=== PATIENT | male | born 1995 | race Caucasian/White ===

== ENCOUNTER 2020-11-14 08:49 | Emergency (ER) | payer SELFPAY ==
[2020-11-14 09:00] VITALS: BP 129/78; PULSE 99; RESP 16; TEMP 36.6; O2SAT 100
--- NOTE | 2020-11-14 09:09 | ED.GENADULT ---
HPI - General Adult General Chief complaint: Wound/Laceration Stated complaint: Right Hand Injury Time Seen by Provider: 11/14/20 08:59 History of Present Illness HPI narrative: Patient is a 24-year-old male who comes into the ED today with concern for laceration and wound to his right hand. Patient's history changes as I am speaking with him. Initially he tells me that he suffered a laceration to right palm about 3 hours ago while at work, later on after I point out the fact that this wound appears much older than just 3 hours he tells me that the laceration to his right palm actually happened yesterday while working on a roof and then when he was working this morning he had some stress pill on his right hand and it made the wound worse. He also has an ulcerated wound at the proximal aspect of his right palm which she says is from a wasp sting 7 days ago. He is able to move his hand with full range of motion without pain. He is not having any fevers or systemic symptoms. History of cocaine use and marijuana use. No history of injecting drugs. Otherwise healthy. Does not know when last tetanus was. Related Data Allergies Allergy/AdvReac Type Severity Reaction Status Date / Time No Known Allergies Allergy Verified 11/14/20 09:05 Review of Systems Constitutional: Constitutional: Reports as per HPI, Denies fever(s), Denies night sweats and Denies weakness Cardiovascular: Cardiovascular: Denies chest pain, Denies edema, Denies leg edema, Denies dyspnea and Denies orthopnea Respiratory: Respiratory: Denies cough and Denies dyspnea Gastrointestinal: Gastrointestinal: Denies abdominal pain, Denies constipation, Denies diarrhea, Denies nausea and Denies vomiting Musculoskeletal: Musculoskeletal: Denies abnormal gait, Denies back pain, Denies numbness and Denies tingling Integumentary/Breasts: Comments: See HPI Neurologic: Denies Abnormal speech present, Denies abnormal gait, Denies numbness, Denies tingling and Denies weakness Psychiatric: Psychiatric: Denies homicidal ideation and Denies suicidal ideation Exam Const: General: cooperative, healthy appearing, comfortable, no acute distress, well developed, alert, awake and Physically active Orientation/consciousness: patient oriented x3 HENMT: Head: normal to inspection, normocephalic and atraumatic Ears: external ears normal General nose exam: Normal external nose present Eyes: Pupils: Equal, round and reactive pupils present EOM: EOMs intact bilaterally Neck: Neck: normal visual inspection Chest: Chest palpation & inspection: normal inspection of the chest and no tenderness Resp: Effort & Inspection: normal respiratory effort and able to speak in complete sentences Auscultation: clear to auscultation bilaterally Cardio: Rate: regular rate Rhythm: regular rhythm GI: Inspection: normal to inspection GI Palp: No abdominal tenderness : General: Yes no CVA tenderness Back/Spine/Pelvis: Back: no CVA tenderness Skin: General skin exam: normal color and no rashes or lesions noted Lesions: no lesions Other: There is a very superficial vertical laceration on the ulnar aspect right palm approximately 6 cm in length, there is some blanchable erythema surrounding this and extending into the middle of the palm. At the proximal aspect mid right palm there is a 1 cm in diameter superficial ulcerated lesion with yellow eschar wound bed with minimal surrounding erythema. There is no crepitus. Pain is not out of proportion to exam. Incidentally on the dorsal aspect left thumb he has 1/2 cm diameter ulcerated lesion that has some purulent drainage which she says is from a wasp sting a couple weeks ago. Incidentally on the left middle finger he has a very small paronychia and with some pressure there is some serous drainage. Neuro: General: patient oriented x3, no focal motor deficits and CN's II-XI intact bilaterally Cranial nerves: Yes Equal, round and reactive pupils present
[2020-11-14] MEDS: TETANUS,DIPHTHERIA,AC PERTUSSIS ADULT (0.5 ML) BOOSTRIX IM (10:26)
[2020-11-14 10:41] VITALS: PULSE 88; RESP 16
== END 2020-11-14 10:42 | disposition home or self-care (01) ==
PROVIDERS: Emergency Provider Emergency Medicine
DX: L03.113 Cellulitis of right upper limb (principal); S61.411A Laceration without foreign body of right hand, initial encounter; Z23 Encounter for immunization; X58.XXXA Exposure to other specified factors, initial encounter
CPT/HCPCS: 90471; 90715; 99283

== ENCOUNTER 2021-03-07 17:50 | Emergency (ER) | payer SELFPAY ==
[2021-03-07 18:01] VITALS: BP 135/59; PULSE 80; RESP 17; TEMP 36.4; O2SAT 100
--- NOTE | 2021-03-07 18:48 | ED.DENTAL ---
HPI - Dental/Oral General Chief complaint: Dental/Oral <Sadiq Kowalski PA-C - Last Filed: 03/07/21 18:52> Stated complaint: L SIDE DENTAL PAIN <BAKARI Hawthorne Last Filed: 03/07/21 18:52> Time Seen by Provider: 03/07/21 18:07 <Sadiq Kowalski PA-C - Last Filed: 03/07/21 18:52> Source: patient <BAKARI Hawthorne Last Filed: 03/07/21 18:52> Mode of arrival: ambulatory <BAKARI Hawthorne Last Filed: 03/07/21 18:52> Limitations: no limitations <BAKARI Hawthorne Filed: 03/07/21 18:52> History of Present Illness HPI Narrative: Patient reports discomfort to his posterior left lower molar after eating tacos. He reports they were dry. He denies any pain or drainage prior. Patient took ibuprofen prior to arrival and states his discomfort has improved. <Sadiq Kowalski PA-C - Last Filed: 03/07/21 18:52> Related Data Allergies/adverse reactions: Allergies Allergy/AdvReac Type Severity Reaction Status Date / Time No Known Allergies Allergy Verified 11/14/20 09:05 <Sadiq Kowalski PA-C - Last Filed: 03/07/21 18:52> Review of Systems Review of Systems: CONSTITUTIONAL: Denies fever, chills, or sweats. EYES: Denies visual changes, redness, or discharge. ENT: Reports dental pain denies rhinorrhea, congestion, sore throat, or otalgia. CARDIOVASCULAR: Denies chest pain, palpitations, or edema. RESPIRATORY: Denies cough or dyspnea. GASTROINTESTINAL: Denies abdominal pain, nausea, vomiting, or diarrhea. GENITOURINARY: Denies dysuria or hematuria. SKIN: Denies rash or itching. MUSCULOSKELETAL: Denies back pain, joint pain, or myalgia. NEUROLOGIC: Denies headache, numbness, dizziness, or weakness. PSYCHIATRIC: Denies anxiety or depression. <BAKARI Hawthorne Last Filed: 03/07/21 18:52> Exam Narrative: GENERAL: Well-appearing, well-nourished, and in no acute distress. HEAD: Normocephalic, atraumatic. EYES: PERRLA and EOMI. ENT: Nares clear, no rhinorrhea or epistaxis. Mucous membranes moist. Oropharynx without tonsillar hypertrophy exudate or other lesions. Broken posterior lower molar. No signs of surrounding abscess or erythema or drainage. Cavities and broken dentition throughout. CHEST: No tachypnea. No respiratory distress. NEURO: No focal deficits. Alert and oriented x3. PSYCH: Normal mood and affect. <Sadiq Kowalski PA-C - Last Filed: 03/07/21 18:52> Course TAX INVESTIGATOR/PA Physician Supervision For this patient encounter, I reviewed the TAX INVESTIGATOR or PA documentation, treatment plan, and medical decision making. <Zafar Higgins MD - Last Filed: 03/08/21 11:26> Vital Signs Vital signs: Vital Signs Temperature 97.6 F 03/07/21 18:01 Pulse Rate 80 03/07/21 18:01 Respiratory Rate 17 03/07/21 18:01 Blood Pressure 135/59 L 03/07/21 18:01 Pulse Oximetry 100 03/07/21 18:01 Temperature 97.6 F 03/07/21 18:01 Pulse Rate 80 03/07/21 18:01 Respiratory Rate 17 03/07/21 18:01 Blood Pressure 135/59 L 03/07/21 18:01 Pulse Oximetry 100 03/07/21 18:01 <Sadiq Kowalski PA-C - Last Filed: 03/07/21 18:52> Vital Signs Temperature 97.6 F 03/07/21 18:01 Pulse Rate 80 03/07/21 18:01 Respiratory Rate 17 03/07/21 18:01 Blood Pressure 135/59 L 03/07/21 18:01 Pulse Oximetry 100 03/07/21 18:01 Temperature 97.6 F 03/07/21 18:01 Pulse Rate 80 03/07/21 18:01 Respiratory Rate 17 03/07/21 18:01 Blood Pressure 135/59 L 03/07/21 18:01 Pulse Oximetry 100 03/07/21 18:01 <Zafar Higgins MD - Last Filed: 03/08/21 11:26> MDM - Dental/Oral MDM Narrative Medical decision making narrative: Patient denies having any pain to the area prior to the injury. Patient has been instructed to follow-up with a dentist for definitive treatment. <Sadiq Kowalski PA-C - Last Filed: 03/07/21 18:52> Discharge Plan Discharge Clinical Impression: Dental injury <Sadiq Kowalski PA-C - Last Filed: 0
[2021-03-07] MEDS: ACETAMINOPHEN 500 MG TABLET 1000 MG PO (18:54)
== END 2021-03-07 19:00 | disposition home or self-care (01) ==
PROVIDERS: Emergency Provider Emergency Medicine
DX: S09.93XA Unspecified injury of face, initial encounter (principal); X58.XXXA Exposure to other specified factors, initial encounter
CPT/HCPCS: 99282; A9270

== ENCOUNTER 2023-04-29 14:31 | Outpatient (CLI) | payer OTHER, SELFPAY ==
--- NOTE | 2023-04-29 | ECG_ITS ---
Measurements Intervals [place] Rate: 65 P: 44 UT: 142 QRS: 85 QRSD: 94 T: 70 QT: 403 QTc: 421 Interpretive Statements SINUS RHYTHM BASELINE WANDER- V3 NORMAL ECG NO PREVIOUS ECG AVAILABLE FOR COMPARISON Electronically Signed On 04-29-2023 15:38:40 VEST FRONT PRESSER by Alton Ceja D.O.
== END 2023-04-29 14:32 | disposition home or self-care (01) ==
DX: I49.9 Cardiac arrhythmia, unspecified (principal)
CPT/HCPCS: 93005